=== PATIENT | male | born 2000 | race Caucasian/White ===

== ENCOUNTER 2021-05-09 04:50 | Emergency (ER) | payer OTHER ==
[~2021-05-09] VITALS: Ht 182.9 cm; Wt 82.6 kg
[2021-05-09 05:36] VITALS: BP 162/79
--- NOTE | 2021-05-09 05:54 | NUR ---
PT TRANSFERRED TO ER BED 09 VIA WHEELCHAIR
--- NOTE | 2021-05-09 06:06 | NUR ---
ER/MD DR MAYORGA AT BEDSIDE FOR EVAL.
[2021-05-09] MEDS ORDERED: NAPR-1704 PO (06:22)
[2021-05-09 06:26] VITALS: BP 134/70
== END 2021-05-09 06:27 | disposition home or self-care (01) ==
LOC: MED 04:50
DX: M25.511 Pain in right shoulder (principal); W19.XXXA Unspecified fall, initial encounter; Y93.89 Activity, other specified; Y92.89 Other specified places as the place of occurrence of the external cause; Y99.8 Other external cause status
CPT/HCPCS: 73030; 99283